=== PATIENT | female | born 1945 | race Caucasian/White ===

== ENCOUNTER 2017-07-07 18:08 | Inpatient (IN) | payer MEDICARE ==
[~2017-07-07] VITALS: Ht 157.5 cm; Wt 81.0 kg
--- NOTE | ~2017-07-07 | CR72 ---
[facility] A Service of [facility] RADIOLOGY TEXT RESULTS PATIENT: ABDON CAMACHO I LOCATION: [place] [address] : 43 UNIT #: [id number] AGE: [address]: Maryan Cuevas MD SEX: F ORDER DR: [id number] [facility] [address] [place], [place] [address] [id number] I MR#: [id number] Acc #: [id number] NAME: ABDON CAMACHO I. : 1945 SEX: F STUDY DATE/TIME: 07/07/2017 19:05 UNIT: CEDOF ROOM: 55788 STUDY DESCRIPTION: CR Chest Single View Portable Attending Physician: Perla Lin M.D. Ordering Physician: Cecilio Brasher D.O. Primary Care Physician: Alejandro Patten M.D. MEDICAL IMAGING REPORT This report is preliminary unless electronic signature is present EXAM Frontal chest, 07/07/2017. INDICATION 72-year-old female with altered mental status, short of air, weakness. Symptoms since a fall today. TECHNIQUE Frontal chest compared with 01/03/2017. FINDINGS Cardiac silhouette is within normal limits. Vascularity normal. Lungs clear. Mild prominence of the right hilum unchanged and probably relates to a prominent pulmonary artery. No pneumothorax. IMPRESSION No dense consolidation, effusion, or pneumothorax. Old healed granulomatous disease. Dictated by... Francisco Padilla M.D. THIS IS AN ELECTRONICALLY VERIFIED REPORT Francisco Padilla M.D. at 07/08/2017 8:30 AM DALILA/grisel TD: 07/08/2017 01:30 JOB #: [id number] MEDICAL IMAGING REPORT Page 1 of 1 COPY
--- NOTE | ~2017-07-07 | EKG ---
PATIENT: ABDON CAMACHO UNIT #: [id number] Ventricular Rate: 99 BPM Atrial Rate: 99 BPM P-R Interval: 164 ms QRS Duration: 68 ms Q-T Interval: 338 ms QTC Calculation(Bezet): 433 ms P [place]: 66 degrees Calculated R [place]: 47 degrees Calculated T [place]: 82 degrees Diagnosis Line: Normal sinus rhythm Diagnosis Line: Septal infarct (cited on or before 22-NOV-2014) Diagnosis Line: Abnormal ECG Diagnosis Line: When compared with ECG of 01-AUG-2015 02:11, Diagnosis Line: No significant change was found Diagnosis Line: Confirmed by BENITEZ FINE MD ([id number]) on Diagnosis Line: 07/11/2017 10:45:07 AM INTERPRETING MD: RODY ENCISO
--- NOTE | ~2017-07-07 | DS ---
Unit #: [id number] #: [id number] Patient: ABDON CAMACHO I [id number] [address] [address] [id number] I MR#: [id number] NAME: ABDON CAMACHO I. ROOM: 466 Age: 72 Sex: F Admission Date: 07/07/2017 : 1945 Discharge Date: 07/11/2017 Attending Physician: Maryan Cuevas M.D. Primary Care Physician: Alejandro Patten M.D. DISCHARGE SUMMARY DISCHARGE DIAGNOSES 1. E. Coli sepsis. 2. Pyelonephritis. 3. E. Coli urinary tract infection. 4. 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 5. Toxic metabolic encephalopathy. 6. Hypertension. 7. Possible right tonsillitis. 8. Chronic obstructive pulmonary disease. 9. Acute hypoxic respiratory failure. 10. Depression. 11. Chronic fatigue syndrome. 12. Chronic iron deficiency anemia. 13. Obesity. CONSULTATIONS None. PROCEDURES None. LAB DATA: Glucose 161, creatinine 1.1, WBC 5.1, hemoglobin 9.2, platelets 143. Urine cultures are growing E. Coli. Blood cultures are growing E. Coli with blood cultures negative. ALLERGIES Sulfa and metformin. DISCHARGE MEDICATIONS 1. Lyrica 25 p.o. b.i.d. 2. Zoloft 100 daily 3. Anoro Ellipta 62.5/25 mcg inhalation daily 4. Lisinopril 10 mg daily 5. Levemir 40 units subcu at 10:00 p.m. 6. Florastor 250 p.o. b.i.d. 7. Omeprazole 20 p.o. daily 8. Omnicef 300 p.o. b.i.d. for ten days HOSPITALIZATION COURSE [age] year old, admitted because of change in mental status: Sepsis Gram negative with E. Coli bacteremia, the patient was started on IV Rocephin. Cultures are growing E. Coli, both in blood and urine. The patient will be discharged on Omnicef for ten more days. Unit #: [id number] #: [id number] Patient: ABDON CAMACHO I Acute pyelonephritis with E. Coli urinary tract infection with change in mental status and sepsis. The patient will be discharged on Omnicef for ten more days. Toxic metabolic encephalopathy from sepsis, currently resolved. Hypertension, uncontrolled, continue with lisinopril. Right tonsillitis, not sure currently pain resolved, continue with Omnicef, less likely tonsillitis. Discharged home, follow with family physician in one weeks' time. Dictated by... Evelia Palumbo TD: 07/12/2017 08:31 JOB #: [id number] DISCHARGE SUMMARY Page 1 of 1 X Maryan Cuevas MD X DISCHARGE SUMMARY
--- NOTE | ~2017-07-07 | CT71 ---
[facility] A Service of [facility] RADIOLOGY TEXT RESULTS PATIENT: ABDON CAMACHO I LOCATION: [place] [address] : 43 UNIT #: [id number] AGE: [address]: Maryan Cuevas MD SEX: F ORDER DR: [id number] [facility] [address] [place], [place] [address] [id number] I MR#: [id number] Acc #: [id number] NAME: ABDON CAMACHO I. : 1945 SEX: F STUDY DATE/TIME: 07/07/2017 19:43 UNIT: CEDOF ROOM: 96365 STUDY DESCRIPTION: CT Head Wo Contrast Attending Physician: Perla Lin M.D. Ordering Physician: Cecilio Brasher D.O. Primary Care Physician: Alejandro Patten M.D. MEDICAL IMAGING REPORT This report is preliminary unless electronic signature is present EXAM CT head without IV contrast. COMPARISON February 04, 2017, August 03, 2016, and August 01, 2015. INDICATION 72-year-old female with confusion, weakness, and fever today. TECHNIQUE This CT exam was performed with one or more of the following radiation dose reduction techniques: automatic exposure control, adjustment of mA and/or kV according to patient size, and iterative reconstruction. FINDINGS Cerumen in both external ear canals. Calcifications of the cavernous and intracranial segments of the internal carotid arteries bilaterally. Visualized mastoid air cells, middle ears, and paranasal sinuses are well-aerated. No acute fracture or suspicious osseous lesion. Moderate cerebral and cerebellar volume loss. No abnormal extraaxial fluid collection or mass effect. No acute intracranial hemorrhage. Detailed evaluation of the brain is limited by motion. Stable chronic small vessel ischemic change of the left lentiform nucleus. No convincing evidence of acute ischemia. IMPRESSION Motion-limited exam. No convincing evidence of acute abnormality. There is definitely no acute intracranial hemorrhage or mass effect. There is grossly stable moderate cerebral and cerebellar volume loss. Arterial calcifications are again noted. Chronic small vessel ischemic change, mild. [facility] A Service of [facility] RADIOLOGY TEXT RESULTS PATIENT: ABDON CAMCAHO I LOCATION: [place] [address] : 43 UNIT #: [id number] AGE: [address]: Maryan Cuevas MD SEX: F ORDER DR: Dictated by... Jeremy Ruiz M.D. THIS IS AN ELECTRONICALLY VERIFIED REPORT Jeremy Ruiz M.D. at 07/13/2017 9:04 PM JOSE EDUARDO/grisel TD: 07/08/2017 01:35 JOB #: [id number] MEDICAL IMAGING REPORT Page 1 of 1 COPY
--- NOTE | ~2017-07-07 | HP ---
Unit #: [id number] #: [id number] Patient: ABDON CAMACHO I [id number] [address] [place], [place] [address] [id number] I MR#: [id number] NAME: ABDON CAMACHO I. ROOM: 18356 Age: 72 Sex: F Admission Date: 07/07/2017 : 1945 Attending Physician: Perla Lin M.D. Primary Care Physician: Alejandro Pattne M.D. HISTORY AND PHYSICAL CHIEF COMPLAINT Pyelonephritis with toxic metabolic encephalopathy. HISTORY This pleasant 72-year-old female with AODM, COPD, hypertension, is admitted for pyelonephritis and confusion. The patient was in her usual state of health until this morning. She appeared to be weaker, somewhat short of breath and used her inhaler. She also appeared to be chilled. Her family rechecked the patient after a couple of hours and she was confused and weak. She was brought to this emergency department with a temperature of 103.1. The patient was given Tylenol and bolused with IV fluids. She was then given Rocephin for significant pyuria. She does admit to some recent dysuria, urgency and frequency. Initial O2 saturation was only 90% on 2 L of oxygen but has improved. She also admits to a recent sore throat, and on examination she does have what appears to be right tonsillitis. PAST MEDICAL HISTORY 1. Admission two years ago for UTI and toxic metabolic encephalopathy. 2. AODM with peripheral neuropathy. 3. Admission for ischemic colitis and lower GI bleed 07/2016. Colonoscopy was performed showing ischemic colitis. Polyps were removed with diverticular disease. 4. COPD. 5. Essential hypertension. 6. GERD. 7. Chronic fatigue syndrome. 8. Depression. 9. B12 deficiency. 10. Hysterectomy. 11. Cholecystectomy. 12. Cataract extraction. ALLERGIES Sulfa, penicillin, metformin and codeine. HOME MEDICATIONS Levemir 45 units subcu q.h.s. for which the patient did received tonight; Stiolto Respimat two puffs daily; Ventolin inhaler as needed; omeprazole 20 mg daily as needed; lisinopril 10 mg daily; Lyrica 25 mg b.i.d. p.r.n. Ibuprofen; Zoloft 100 mg daily; FAMILY HISTORY Unit #: [id number] #: [id number] Patient: ABDON CAMACHO I Prostate cancer, dementia. SOCIAL HISTORY The patient lives with her daughter and grandson. She used to smoke a pack per day of tobacco but stopped smoking 16 years ago. Does not drink alcohol or use illicit drugs. REVIEW OF SYSTEMS Notable for confusion, urinary symptoms, diabetes, COPD, some throat pain, hypertension, GERD, and above mentioned surgeries. All other systems were reviewed and otherwise negative. PHYSICAL EXAMINATION GENERAL: Mildly ill appearing 72-year-old, moderately obese female. VITAL SIGNS: Temperature 103.1, pulse 97, respirations 20, blood pressure initially 183/57, which has improved. Initial O2 saturation was 90% on 2 L also improved. HEENT: Eyes - PERRLA. Extraocular muscles are intact. Pharynx has some whitish plaque by the right tonsil. NECK: Supple without adenopathy or thyromegaly. CHEST: Chest reveals some crackles at the bases bilaterally. CARDIAC: Normal S1 and S2 without murmur. ABDOMEN: Bowel sounds are present. Mild tenderness without rebound guarding. No hepatosplenomegaly or masses. EXTREMITIES: Without clubbing, cyanosis or edema. Pedal pulses are present but diminished. No ulcers on the feet. No splinter hemorrhages over the fingernail beds. NEUROLOGIC: Patient is awake, alert and is now oriented x3. Her cranial nerves are intact. She has equal strength throughout but generally weak on exam. DIAGNOSTIC STUDIES ADMISSION LABS: Hematocrit 31.7, down from 33.5 last year, MCV is 78.1, normal white count and platelet count. Left shift is noted. Coags normal. SMA 12 - glucose is 248, albumin 3.3, alk phos 100, lactic acid is normal. ABG - pH 7.42, pCO2 is 39, pO2 60.3, O2 saturation 89.8% on 2 L of oxygen. Cardiac markers are negative. Urinalysis - positive leukocyte esterase, protein, blood with 25-50 red cells, 50-100 white cells, 4+ bacteria noted. IMAGING STUDIES: Chest x-ray - old granulomatous disease. Head CT - no acute disease. Moderate volume loss, atherosclerotic changes, mild small vessel ischemic disease. CARDIOLOGY STUDIES: EKG - sinus rhythm, rate 99, Q noted in V1 and V2. The Q in V2 may be lead placement, I am unsure. ASSESSMENT 1. Pyelonephritis. 2. Toxic metabolic encephalopathy. 3. AODM with hyperglycemia, peripheral neuropathy, retinopathy. 4. Possible right tonsillitis. 5. COPD with mild acute hypoxic respiratory failure. 6. Depression, chronic fatigue syndrome. 7. Essential hypertension. PLANS Unit #: [id number] #: [id number] Patient: ABDON CAMACHO I 1. IV fluids. 2. Rocephin. 3. Adjust insulin while ill. 4. SCDs for DVT prophylaxis. 5. Obtain Strep swab. 6. Supplemental oxygen and albuterol mini-nebs. Dictated by Perla Lin M.D. AML/ts TD: 07/08/2017 05:12 JOB #: [id number] HISTORY AND PHYSICAL Page 1 of 1 X Perla Lin MD HISTORY AND PHYSICAL
[~2017-07-07 18:08] MED LIST: ADVAIR 100-501 EAC1 IH; B-COMPLEX-VITA1 EACH PO; DITROPAN5 MG PO; FLAGYL PO; GABAPENTIN300 MG PO; HEMOCYTE324 MG PO; LEVAQUIN PO; LEVEMIR FL100 UNIT/1; LEVEMIR INJ; LISINOPRIL10 MG PO; NEURONTIN600 MG; NEURONTIN600 MG PO; OMEPRAZOLE MAGN20 MG PO; PRILOSEC20 MG PO; PROVENTIL5 MG/ML IH; STIOLTO RESPIMAT4 GM INH; VENTOLIN HFA INH; VITAMIN B12-FO1 EACH PO; ZESTRIL10 M1 PO; ZOLOFT100 MG PO; ZYVOX600 MG PO
[2017-07-07 18:43] LABS: ARTERIAL BLD GAS O2 SATURATION 89.8 % (90.0-100.0); ARTERIAL BLOOD GAS CARBOXY HB 1.6 %sat (0.0-9.0); ARTERIAL BLOOD GAS HCO3 25.7 mmol/L; ARTERIAL BLOOD GAS MET HB 0.7 %sat (0.0-2.0); ARTERIAL BLOOD GAS PCO2 39.6 mmHg (35.0-45.0); ARTERIAL BLOOD GAS pH 7.421 (7.350-7.450)
[2017-07-07 18:44] LABS: ARTERIAL BLOOD GAS ART SITE LEFT BRACHIAL; ARTERIAL BLOOD GAS DELIVERY NASAL CANNULA; ARTERIAL BLOOD GAS PO2 60.3 mmHg (80.0-100); ARTERIAL DRAW? YES
[2017-07-07 19:02] LABS: BASOPHIL# 0.1 X10e3 (0-0.3); BASOPHIL% 0.6 % (0-2.5); EOSINOPHIL% 0.4 % (0.0-7.0); HEMATOCRIT 31.7 % (35.0-45.0); HEMOGLOBIN 10.6 gm/dL (12.0-16.0); LYMPHOCYTE# 0.3 X10e3 (1.0-3.5); MEAN CELL VOLUME 78.1 FL (83-96); MEAN CORPUSCULAR HEMOGLOBIN 26.2 PG (28-34); MEAN CORPUSCULAR HGB CONC 33.5 g/dL (30-36); MEAN PLATELET VOLUME 7.6 FL (6.5-11.5); MONOCYTE# 0.3 X10e3 (0-1.0); MONOCYTE% 2.7 % (3.0-12.0); NEUTROPHIL% 93.3 % (40-75); PLATELET COUNT 163 X10e3 (140-420); RED BLOOD COUNT 4.06 X10e (3.90-5.30); RED CELL DISTRIBUTION WIDTH 14.7 % (11.0-15.5); WHITE BLOOD COUNT 9.6 X10e3 (4.0-10.5)
[2017-07-07 19:06] LABS: DIFF IND NO
[2017-07-07 19:16] LABS: URINE SOURCE CLEAN CATCH
[2017-07-07 19:18] LABS: POC - CKMB 2.5 ng/mL (0.0-7.9); POC - TROPONIN <0.05 ng/mL (<=0.05)
[2017-07-07 19:18] LABS: ALBUMIN SERUM 3.3 g/dL (3.5-5.0); BILIRUBIN, DIRECT 0.4 mg/dL (0.0-0.2); BILIRUBIN,INDIRECT 1.5 mg/dL (0.0-0.9); BILIRUBIN,TOTAL 1.9 mg/dL (0.2-2.0); BUN/CREATININE RATIO 17.69; CALCIUM SERUM 8.6 mg/dL (8.4-10.2); CREATININE SERUM 1.3 mg/dL (0.6-1.4); GLOM FILT RATE Estimated 40.4 mL/min (>60); PARTIAL THROMBOPLASTIN TIME 26.1 SECONDS (23.5-31.3); POTASSIUM 4.3 mmol/L (3.5-5.1); PROTEIN TOTAL SERUM 6.7 g/dL (6.0-8.3); PROTHROMBIN TIME (PATIENT) 11.1 SECONDS (10.0-11.7)
[2017-07-07 19:23] LABS: URINE APPEARANCE CLOUDY; URINE BILIRUBIN NEG (NEG); URINE BLOOD 2+ (NEG); URINE COLOR YELLOW; URINE GLUCOSE NEG (NEG); URINE KETONE NEG (NEG); URINE LEUKOCYTE ESTERASE 2+ (NEG); URINE NITRATE NEG (NEG); URINE PROTEIN 3+ (NEG); URINE SPECIFIC GRAVITY 1.011 (1.003-1.035); URINE UROBILINOGEN 0.2 MG/DL (NEG)
[2017-07-07 19:26] LABS: CULTURE INDICATED? YES; URBCS1 AUWI 25-50 /[HPF] (0-2); URINE BACTERIA AUWI 4+ (NEGATIVE); URINE SQUAMOUS EPITHELIAL CELL NONE SEEN /[HPF]; UWBCS1 AUWI 50-100 (0-5)
[2017-07-07 20:54] LABS: POC - CKMB 2.5 ng/mL (0.0-7.9); POC - TROPONIN <0.05 ng/mL (<=0.05)
[2017-07-08 03:49] LABS: BASOPHIL# 0.1 X10e3 (0-0.3); BASOPHIL% 0.7 % (0-2.5); EOSINOPHIL# 0.1 X10e3 (0-0.7); EOSINOPHIL% 0.4 % (0.0-7.0); HEMATOCRIT 30.2 % (35.0-45.0); HEMOGLOBIN 9.9 gm/dL (12.0-16.0); LYMPHOCYTE# 0.9 X10e3 (1.0-3.5); LYMPHOCYTE% 7.8 % (17.0-45.0); MEAN CELL VOLUME 79.2 FL (83-96); MEAN CORPUSCULAR HEMOGLOBIN 26.1 PG (28-34); MEAN CORPUSCULAR HGB CONC 32.9 g/dL (30-36); MEAN PLATELET VOLUME 7.6 FL (6.5-11.5); MONOCYTE% 8.1 % (3.0-12.0); NEUTROPHIL# 9.8 X10e3 (1.5-7.1); PLATELET COUNT 148 X10e3 (140-420); RED BLOOD COUNT 3.82 X10e (3.90-5.30); RED CELL DISTRIBUTION WIDTH 14.8 % (11.0-15.5); WHITE BLOOD COUNT 11.8 X10e3 (4.0-10.5)
[2017-07-08 03:51] LABS: DIFF IND NO
[2017-07-08 04:15] LABS: BUN/CREATININE RATIO 22.72; CALCIUM SERUM 7.7 mg/dL (8.4-10.2); CREATININE SERUM 1.1 mg/dL (0.6-1.4); GLOM FILT RATE Estimated 49.4 mL/min (>60); POTASSIUM 3.8 mmol/L (3.5-5.1)
[2017-07-09 02:33] LABS: HEMATOCRIT 27.2 % (35.0-45.0); MEAN CELL VOLUME 79.2 FL (83-96); MEAN CORPUSCULAR HEMOGLOBIN 26.2 PG (28-34); MEAN CORPUSCULAR HGB CONC 33.1 g/dL (30-36); MEAN PLATELET VOLUME 7.3 FL (6.5-11.5); RED BLOOD COUNT 3.43 X10e (3.90-5.30); RED CELL DISTRIBUTION WIDTH 14.9 % (11.0-15.5); WHITE BLOOD COUNT 7.2 X10e3 (4.0-10.5)
[2017-07-09 02:57] LABS: BILIRUBIN,TOTAL 1.6 mg/dL (0.2-2.0); CALCIUM SERUM 8.2 mg/dL (8.4-10.2); CREATININE SERUM 1.2 mg/dL (0.6-1.4); GLOM FILT RATE Estimated 44.5 mL/min (>60); POTASSIUM 3.7 mmol/L (3.5-5.1); PROTEIN TOTAL SERUM 6.5 g/dL (6.0-8.3)
[2017-07-11 02:20] LABS: BASOPHIL% 0.7 % (0-2.5); DIFF IND NO; EOSINOPHIL# 0.2 X10e3 (0-0.7); EOSINOPHIL% 4.2 % (0.0-7.0); HEMOGLOBIN 9.2 gm/dL (12.0-16.0); LYMPHOCYTE# 0.8 X10e3 (1.0-3.5); MEAN CELL VOLUME 78.6 FL (83-96); MEAN CORPUSCULAR HEMOGLOBIN 25.9 PG (28-34); MEAN PLATELET VOLUME 7.8 FL (6.5-11.5); MONOCYTE# 0.7 X10e3 (0-1.0); MONOCYTE% 13.9 % (3.0-12.0); NEUTROPHIL# 3.3 X10e3 (1.5-7.1); NEUTROPHIL% 65.2 % (40-75); PLATELET COUNT 143 X10e3 (140-420); RED BLOOD COUNT 3.56 X10e (3.90-5.30); RED CELL DISTRIBUTION WIDTH 14.7 % (11.0-15.5); WHITE BLOOD COUNT 5.1 X10e3 (4.0-10.5)
[2017-07-11 02:38] LABS: BUN/CREATININE RATIO 20.9; CALCIUM SERUM 8.5 mg/dL (8.4-10.2); CREATININE SERUM 1.1 mg/dL (0.6-1.4); GLOM FILT RATE Estimated 49.4 mL/min (>60); POTASSIUM 3.5 mmol/L (3.5-5.1)
[2017-07-11] MEDS ORDERED: LYRICA25 MG PO (16:07)
[2017-07-11] MEDS ORDERED: LISINOPRIL10 MG PO (16:09)
[2017-07-11] MEDS ORDERED: ZOLOFT100 MG PO (16:09)
[2017-07-11] MEDS ORDERED: PROBIOTIC250 MG PO (16:12)
[2017-07-11] MEDS ORDERED: LEVEMIR100 UNITS/ SUBQ (16:20)
[2017-07-11] MEDS ORDERED: ANORO ELLIPTA1 EACH INH (16:24)
[2017-07-11] MEDS ORDERED: OMNICEF300 M1 PO (16:26)
== END 2017-07-11 18:00 | disposition home or self-care (01) | DRG 871 ==
LOC: CED 18:08 → CEDOF 20:58 → C4B 07-08 07:55 → CEDOF 07-08 07:55 → C4C 07-11 11:38
PROVIDERS: Emergency Medicine; Internal Medicine
DX: A41.51 Sepsis due to Escherichia coli [E. coli] (principal); G92 Toxic encephalopathy; J96.01 Acute respiratory failure with hypoxia; N10 Acute pyelonephritis; J44.9 Chronic obstructive pulmonary disease, unspecified; E11.42 Type 2 diabetes mellitus with diabetic polyneuropathy; I10 Essential (primary) hypertension; Z90.710 Acquired absence of both cervix and uterus; Z90.49 Acquired absence of other specified parts of digestive tract; Z98.49 Cataract extraction status, unspecified eye; E53.8 Deficiency of other specified B group vitamins; R53.82 Chronic fatigue, unspecified; B96.20 Unspecified Escherichia coli [E. coli] as the cause of diseases classified elsewhere; J03.90 Acute tonsillitis, unspecified; E11.319 Type 2 diabetes mellitus with unspecified diabetic retinopathy without macular edema; E11.65 Type 2 diabetes mellitus with hyperglycemia; D50.9 Iron deficiency anemia, unspecified; E66.9 Obesity, unspecified; Z79.84 Long term (current) use of oral hypoglycemic drugs
CPT/HCPCS: 36415; 36600; 70450; 71010; 80048; 80053; 80076; 81003; 82140; 82553; 82803; 82947; 83605; 84484; 85025; 85027; 85610; 85730; 87040; 87077; 87086; 87088; 87186; 87651; 93005; 94640; 94664; 94760; 96360; 96361; 97116; 97162; 99285; G8978-GP; G8979-GP; J0696; J1815

== ENCOUNTER 2017-07-15 20:12 | Inpatient (IN) | payer MEDICARE ==
[~2017-07-15] VITALS: Ht 152.4 cm; Wt 90.3 kg
--- NOTE | ~2017-07-15 | CR72 ---
[facility] A Service of [facility] RADIOLOGY TEXT RESULTS PATIENT: ABDON CAMACHO I LOCATION: A : 43 UNIT #: [id number] AGE: [address]: Steve Moreno MD SEX: F ORDER DR: [id number] [facility] [address] [place], [place] [address] [id number] I MR#: [id number] Acc #: [id number] NAME: ABDON CAMACHO I. : 1945 SEX: F STUDY DATE/TIME: 07/15/2017 20:42 UNIT: [facility] ROOM: [facility] STUDY DESCRIPTION: CR Chest Single View Portable Attending Physician: Steve Moreno M.D. Ordering Physician: Herbert Kiran M.D. Primary Care Physician: Alejandro Patten M.D. MEDICAL IMAGING REPORT This report is preliminary unless electronic signature is present EXAM Portable chest HISTORY Shortness of air and weakness for 2 days. FINDINGS Cardiac size and pulmonary vascularity are within normal limits. Mildly tortuous descending thoracic aorta. No airspace infiltrates or effusions. IMPRESSION No acute findings, Dictated by... Reid Golden M.D. THIS IS AN ELECTRONICALLY VERIFIED REPORT Reid Golden M.D. at 07/16/2017 11:48 PM DELFINO/he TD: 07/16/2017 10:41 JOB #: [id number] MEDICAL IMAGING REPORT Page 1 of 1 COPY
--- NOTE | ~2017-07-15 | EKG ---
PATIENT: ABDON CAMACHO UNIT #: [id number] Ventricular Rate: 79 BPM Atrial Rate: 79 BPM P-R Interval: 148 ms QRS Duration: 80 ms Q-T Interval: 394 ms QTC Calculation(Bezet): 451 ms P Reading: 21 degrees Calculated R Reading: 33 degrees Calculated T Reading: 54 degrees Diagnosis Line: Normal sinus rhythm Diagnosis Line: Normal ECG Diagnosis Line: When compared with ECG of 15-JUL-2017 20:45, Diagnosis Line: (unconfirmed) Diagnosis Line: Previous ECG has undetermined rhythm, needs review Diagnosis Line: Confirmed by MUSA PEMBERTON MD ([id number]) on 07/16/2017 Diagnosis Line: 7:37:21 PM INTERPRETING MD: NIECY ENCISO
--- NOTE | ~2017-07-15 | CR72 ---
[facility] A Service of [facility] RADIOLOGY TEXT RESULTS PATIENT: ABDON CAMACHO I LOCATION: [facility] : 43 UNIT #: [id number] AGE: [address]: Steve Moreno MD SEX: F ORDER DR: [id number] [facility] [address] [place], [place] [address] [id number] I MR#: [id number] Acc #: [id number] NAME: ABDON CAMACHO I. : 1945 SEX: F STUDY DATE/TIME: 07/18/2017 9:08 UNIT: [facility] ROOM: [facility] STUDY DESCRIPTION: CR Chest Single View Portable Attending Physician: Steve Moreno M.D. Ordering Physician: Steve Moreno M.D. Primary Care Physician: Alejandro Patten M.D. MEDICAL IMAGING REPORT This report is preliminary unless electronic signature is present EXAM Portable AP view of the chest COMPARISON July 15, 2017, July 07, 2017 and January 03, 2017. INDICATIONS 72-year-old female with dyspnea and weakness today. History of hypertension and COPD. FINDINGS The patient is rotated to the left shifting the tracheal gas column over the medial upper left chest. No evidence of pneumothorax. Heart size is within normal limits. There are slightly increased bibasilar opacities favoring bronchovascular crowding and atelectasis. No significant pleural effusion. Healed sixth left posterolateral rib fracture. IMPRESSION Slightly increased bibasilar opacities suggesting atelectasis. Correlation for signs of pneumonia recommended. No pleural effusion or evidence of pneumothorax. Dictated by... Jeremy Ruiz M.D. THIS IS AN ELECTRONICALLY VERIFIED REPORT Jeremy Ruiz M.D. at 07/23/2017 6:10 PM BLM/leonie TD: 07/18/2017 12:29 JOB #: [id number] [facility] A Service of [facility] RADIOLOGY TEXT RESULTS PATIENT: ABDON CAMACHO I [id number] 43 UNIT #: [id number] AGE: [address]: Steve Moreno MD SEX: F ORDER DR: MEDICAL IMAGING REPORT Page 1 of 1 COPY
--- NOTE | ~2017-07-15 | HP ---
Unit #: [id number] #: [id number] Patient: ABDON CAMACHO I [id number] [address] [place], [place] [address] [id number] I MR#: [id number] NAME: ABDON CAMACHO I. ROOM: 22208 Age: 72 Sex: F Admission Date: 07/16/2017 : 1945 Attending Physician: Perla Lin M.D. Primary Care Physician: Alejandro Patten M.D. HISTORY AND PHYSICAL CHIEF COMPLAINT Weakness. HISTORY This 72-year-old female with AODM, COPD, hypertension, recent admission for E. coli bacteremia/pyelonephritis is admitted for weakness. The patient was admitted to this facility on 07/07 through 07/11/2017 for E. coli bacteremia and pyelonephritis with toxic metabolic encephalopathy. She was prescribed Omnicef at the time of discharge but did not obtain antibiotics. Has been lying in her bed since her discharge, not getting up, with decreased p.o. intake, chills, malaise. She was brought to this emergency department late last evening with a blood pressure of 192/85, and hyperglycemic with a serum glucose of 300. She is not taking any of her medicines. In the ER, she was bolused with a liter of saline, given 1 g of Rocephin pending repeat blood cultures. PAST MEDICAL HISTORY 1. Recent admission 07/07 through 07/11/2017 for E. coli bacteremia and pyelonephritis. 2. Admission two years ago for UTI and toxic metabolic encephalopathy. 3. AODM with peripheral neuropathy. 4. Admission for ischemic colitis and lower GI bleed 07/2016. Colonoscopy revealed ischemic colitis. Polyps were removed, and diverticular disease noted. 5. COPD. 6. Essential hypertension. 7. GERD. 8. Chronic fatigue syndrome. 9. Depression. 10. B12 deficiency. 11. Hysterectomy. 12. Cholecystectomy. 13. Cataract extraction. ALLERGIES Sulfa, penicillin, metformin and codeine. HOME MEDICATIONS Patient is not taking any of her home medicines. She previously was takin. Zoloft 100 mg daily. 2. Omeprazole 20 mg daily. 3. Lisinopril 10 mg daily. Unit #: [id number] #: [id number] Patient: ABDON CAMACHO I 4. Ventolin inhaler as needed. 5. Stiolto Respimat, 2 puffs daily. 6. Lyrica b.i.d. FAMILY HISTORY Prostate cancer, dementia. SOCIAL HISTORY The patient lives with her daughter and granddaughter. She smoked a pack a day of tobacco but stopped smoking 16 years ago. Does not drink alcohol. REVIEW OF SYSTEMS Notable for weakness, malaise, chills, anorexia, UTI, diabetes, COPD, hypertension, GERD, above mentioned surgeries. All other systems were reviewed and otherwise negative. PHYSICAL EXAMINATION GENERAL: 72-year-old, weak appearing, obese female, currently in no acute distress. VITAL SIGNS: Temperature 97.9, pulse 84, respirations 12, blood pressure 192/85. O2 saturation is 94% on room air. HEENT EXAMINATION: Eyes PERRLA. Extraocular muscles are intact. Pharynx is benign. NECK: Supple without adenopathy or thyromegaly. CHEST: Clear. CARDIAC: Normal S1 and S2 without murmur. ABDOMEN: Bowel sounds are present. No hepatosplenomegaly, tenderness or masses. EXTREMITIES: Without C, C or E. Pedal pulses are present but diminished. No ulcers on the feet. NEUROLOGIC EXAM: The patient is awake, alert, oriented. Cranial nerves are intact. She is generally weak throughout but has equal strength. DIAGNOSTIC STUDIES LABORATORY: Admission labs - hematocrit is 29.4, up from 28. Low MCV of 78.1. Normal white count, platelet count. SMA-12 - glucose is 300, albumin is 3.3, alk. phos. 143, lactic acid is normal. Cardiac markers are negative. Urinalysis - trace leukocyte esterase, positive 2+ blood, 3+ protein, positive glucose with 5-10 white cells. No bacteria. IMAGING: Chest x-ray - no acute disease. CARDIOVASCULAR: EKG - sinus rhythm, rate 80, normal appearing. ASSESSMENT 1. Recent admission for E. coli bacteremia and pyelonephritis. Patient did not fill her antibiotic at the time of discharge. She presents with increasing chills, weakness and not taking any of her medicines. 2. AODM with hyperglycemia. 3. COPD. 4. Accelerated hypertension. 5. Depression. Unit #: [id number] #: [id number] Patient: ABDON CAMACHO I PLANS 1. Restart usual home medicines. 2. IV Rocephin pending repeat blood cultures. 3. IV fluids. 4. DVT prophylaxis. 5. Physical therapy and social work to see. Dictated by Perla Lin M.D. AML/df TD: 07/16/2017 06:10 JOB #: [id number] HISTORY AND PHYSICAL Page 1 of 1 X Perla Lin MD X HISTORY AND PHYSICAL
--- NOTE | ~2017-07-15 | DS ---
Unit #: [id number] #: [id number] Patient: ABDON CAMACHO I [id number] [address] [place], [place] [address] [id number] I MR#: [id number] NAME: ABDON CAMACHO ROOM: 232 Age: 72 Sex: F Admission Date: 07/16/2017 : 1945 Discharge Date: 07/20/2017 Attending Physician: Steve Moreno M.D. Primary Care Physician: Alejandro Patten M.D. DISCHARGE SUMMARY FINAL DIAGNOSES 1. Persistent weakness. 2. Chronic obstructive pulmonary disease exacerbation. 3. Depression. SECONDARY DIAGNOSES 1. Diabetes mellitus type 2. 2. Toxic metabolic encephalopathy. 3. Hypertension. 4. Chronic obstructive pulmonary disease. 5. Hypoxic respiratory failure. 6. Depression. 7. Chronic fatigue syndrome. 8. Recent Escherichia coli bacteremia/pyelonephritis. CONSULTS PulmonaryDr. (1) . HOSPITAL COURSE Patient is a pleasant 72-year-old female who was readmitted after recent discharge after being treated for E-coli sepsis with pyelonephritis. Patient did not seem to have filled antibiotics, was admitted and subsequently managed in the hospital, and she was seen in conjunction with pulmonary. It was felt that she would be a candidate for subacute rehab, and she was actually evaluated and accepted for [facility]. Her electrolytes were repleted. Did have some hypokalemia. However, they felt that patient probably had a possibility of CHF versus COPD. Blood sugars did trend downwards. Patient's weakness seemed to have improved, and she elected to be discharged home with home health instead of the SNU as previously planned. The plan will be to discharge her home with home health. Plans for her to schedule followup with her PCP in the next 3 to 5 days. MEDICATIONS Medications on discharge is: 1. Prednisone taper. 2. Anoro Ellipta 62.5/25 - 1 inhalational daily. 3. Zoloft 100 mg p.o. every morning. 4. Lyrica 25 mg p.o. b.i.d. per home dose. 5. Lisinopril 10 mg p.o. daily. 6. Levemir 20 units subcu b.i.d. 7. Florastor 250 mg p.o. b.i.d. 8. Doxycycline 100 mg p.o. twice daily for 5 more days. Unit #: [id number] #: [id number] Patient: ABDON CAMACHO I DISCHARGE PLAN She has scheduled followup with PCP in the next 3 to 5 days. She will be discharged in stable condition with home health. NOTE: Time spent coordinating discharge was about 28 minutes. Dictated by... Evelia Khanna TD: 07/20/2017 13:17 JOB #: [id number] DISCHARGE SUMMARY Page 1 of 1 X Anderson Kate MD X DISCHARGE SUMMARY
--- NOTE | ~2017-07-15 | CO ---
Unit #: [id number] #: [id number] Patient: ABDON CAMACHO I [id number] [address] [address] [id number] MR#: [id number] NAME: ABDON CAMACHO ROOM: 232 Age: 72 Sex: F Admission Date: 07/16/2017 : 1945 Attending Physician: Steve Moreno M.D. Primary Care Physician: Alejandro Patten M.D. Consultation Date: 07/18/2017 CONSULTATION REPORT REASON FOR CONSULTATION Shortness of breath. HISTORY OF PRESENT ILLNESS This is a very pleasant 72-year-old female with past medical history significant for diabetes, questionable COPD, hypertension, recent admission for E. coli bacteremia/pyelonephritis, who was admitted for profound fatigue and weakness. The patient apparently was discharged from the hospital on 07/11/2017 after an admission for E. coli bacteremia and pyelonephritis. The [facility] was [facility]. However, she was brought back with fatigue, shortness of breath, and systolic blood pressure in the 190s. The patient was hyperglycemic in the emergency room and per her report, she was not taking her medication. PAST MEDICAL HISTORY 1. Recurrent UTI. 2. Diabetes. 3. Neuropathy. 4. History of ischemic colitis. 5. COPD. 6. Hypertension. 7. Depression. 8. B12 deficiency. 9. GERD. PAST SURGICAL HISTORY 1. Cataract surgery. 2. Cholecystectomy. 3. Hysterectomy. ALLERGIES Sulfa, penicillin, metformin, codeine. HOME MEDICATIONS Zoloft, omeprazole, lisinopril, Ventolin, and Lyrica. FAMILY HISTORY 1. Prostate cancer. 2. Dementia. SOCIAL HISTORY Unit #: [id number] #: [id number] Patient: ABDON CAMACHO I The patient lives with daughter and granddaughter. She smoked one pack per day of tobacco, but she quit smoking 16 years ago. No history of alcohol or drug abuse. REVIEW OF SYSTEMS A 12-point review of systems was obtained and was negative except for what was mentioned above. PHYSICAL EXAMINATION GENERAL: The patient is in no acute distress, but she appears fatigued and worn out. VITAL SIGNS: Blood pressure is 165/85, respiratory rate 16, O2 saturation 98% on room air. HEENT: Atraumatic, normocephalic. PERRLA. EOMI. NECK: Supple. No JVD. No lymphadenopathy. CHEST: Decreased breath sounds bilaterally. HEART: S1 and S2 with systolic murmur. ABDOMEN: Soft, nontender. Bowel sounds positive. EXTREMITIES: +1 edema in the lower extremity. SKIN: No rashes. [employer]: Awake, alert, and oriented x3. No focal motor/sensory deficits. DIAGNOSTIC STUDIES LABORATORY RESULTS: Creatinine 1.1. Sodium 134. White blood count 8.2, hemoglobin 8.6. IMAGING STUDIES: Chest x-rays reviewed and noted by me. ASSESSMENT 1. Dyspnea, likely multifactorial. 2. Rule out acute on chronic diastolic congestive heart failure exacerbation. 3. Chronic anemia. 4. Fatigue. 5. Depression. 6. COPD. 7. Diabetes. 8. Neuropathy. PLAN 1. Shortness of breath is likely multifactorial secondary to severe deconditioning, morbid obesity, probably underlying obstructive sleep apnea, and given her increased lower extremity edema, she may have a component of diastolic congestive heart failure. That is exacerbated with hydration and other medication. 2. We will put the patient on IV Bumex and will obtain BMP and any report of echocardiogram that was done in this facility before. 3. We will obtain D-dimer even though pulmonary embolus seems less likely at this point. 4. Bronchodilator as needed. 5. Physical therapy and out of bed to chair. I would like to thank Dr. Moreno for allowing me to be part of this patient's care. Dictated by... Tess Thurman M.D. Unit #: [id number] #: [id number] Patient: ABDON CAMACHO I PERLITA/maday TD: 07/19/2017 02:21 JOB #: [id number] CONSULTATION REPORT Page 1 of 1 X TESS FONSECA MD CONSULTATION REPORT
[~2017-07-15 20:12] MED LIST changes: +ANORO ELLIPTA1 EACH INH; +LEVEMIR100 UNITS/ SUBQ; +LYRICA25 MG PO; +OMNICEF300 M1 PO; +PROBIOTIC250 MG PO
[2017-07-15 20:44] LABS: BASOPHIL# 0.3 X10e3 (0-0.3); BASOPHIL% 4.4 % (0-2.5); EOSINOPHIL# 0.2 X10e3 (0-0.7); EOSINOPHIL% 3.1 % (0.0-7.0); HEMATOCRIT 29.4 % (35.0-45.0); HEMOGLOBIN 9.6 gm/dL (12.0-16.0); LYMPHOCYTE# 0.8 X10e3 (1.0-3.5); LYMPHOCYTE% 10.2 % (17.0-45.0); MEAN CELL VOLUME 78.1 FL (83-96); MEAN CORPUSCULAR HEMOGLOBIN 25.5 PG (28-34); MEAN CORPUSCULAR HGB CONC 32.6 g/dL (30-36); MEAN PLATELET VOLUME 7.2 FL (6.5-11.5); MONOCYTE# 0.3 X10e3 (0-1.0); MONOCYTE% 4.5 % (3.0-12.0); NEUTROPHIL% 77.8 % (40-75); PLATELET COUNT 289 X10e3 (140-420); RED BLOOD COUNT 3.77 X10e (3.90-5.30); RED CELL DISTRIBUTION WIDTH 14.6 % (11.0-15.5); WHITE BLOOD COUNT 7.7 X10e3 (4.0-10.5)
[2017-07-15 20:45] LABS: DIFF IND NO
[2017-07-15 20:55] LABS: PARTIAL THROMBOPLASTIN TIME 24.1 SECONDS (23.5-31.3); PROTHROMBIN TIME (PATIENT) 10.8 SECONDS (10.0-11.7)
[2017-07-15 21:05] LABS: ALBUMIN SERUM 3.3 g/dL (3.5-5.0); BILIRUBIN, DIRECT 0.2 mg/dL (0.0-0.2); BILIRUBIN,INDIRECT 0.6 mg/dL (0.0-0.9); BILIRUBIN,TOTAL 0.8 mg/dL (0.2-2.0); CALCIUM SERUM 8.8 mg/dL (8.4-10.2); GLOM FILT RATE Estimated 55.5 mL/min (>60); POTASSIUM 4.3 mmol/L (3.5-5.1); PROTEIN TOTAL SERUM 7.2 g/dL (6.0-8.3)
[2017-07-15 21:36] LABS: URINE SOURCE CLEAN CATCH
[2017-07-15 21:56] LABS: URINE APPEARANCE CLEAR; URINE BILIRUBIN NEG (NEG); URINE BLOOD 2+ (NEG); URINE COLOR YELLOW; URINE GLUCOSE 100 MG/DL (NEG); URINE KETONE NEG (NEG); URINE LEUKOCYTE ESTERASE TRACE (NEG); URINE NITRATE NEG (NEG); URINE PROTEIN 3+ (NEG); URINE SPECIFIC GRAVITY 1.011 (1.003-1.035); URINE UROBILINOGEN 0.2 MG/DL (NEG)
[2017-07-15 21:58] LABS: CULTURE INDICATED? YES; URINE BACTERIA AUWI NEG (NEGATIVE); URINE SQUAMOUS EPITHELIAL CELL NONE SEEN /[HPF]
[2017-07-15 22:03] LABS: POC - CKMB 3.1 ng/mL (0.0-7.9); POC - TROPONIN <0.05 ng/mL (<=0.05)
[2017-07-16 08:30] LABS: CALCIUM SERUM 8.3 mg/dL (8.4-10.2); GLOM FILT RATE Estimated 55.5 mL/min (>60); POTASSIUM 4.1 mmol/L (3.5-5.1)
[2017-07-16 08:31] LABS: BASOPHIL# 0.1 X10e3 (0-0.3); BASOPHIL% 1.2 % (0-2.5); EOSINOPHIL# 0.1 X10e3 (0-0.7); EOSINOPHIL% 1.1 % (0.0-7.0); HEMATOCRIT 25.7 % (35.0-45.0); HEMOGLOBIN 8.5 gm/dL (12.0-16.0); LYMPHOCYTE# 0.9 X10e3 (1.0-3.5); LYMPHOCYTE% 14.3 % (17.0-45.0); MEAN CELL VOLUME 78.8 FL (83-96); MEAN PLATELET VOLUME 7.3 FL (6.5-11.5); MONOCYTE# 0.4 X10e3 (0-1.0); MONOCYTE% 6.9 % (3.0-12.0); NEUTROPHIL% 76.5 % (40-75); PLATELET COUNT 256 X10e3 (140-420); RED BLOOD COUNT 3.26 X10e (3.90-5.30); RED CELL DISTRIBUTION WIDTH 14.3 % (11.0-15.5); WHITE BLOOD COUNT 6.5 X10e3 (4.0-10.5)
[2017-07-16 08:32] LABS: DIFF IND NO
[2017-07-17 06:52] LABS: HEMATOCRIT 26.7 % (35.0-45.0); HEMOGLOBIN 8.8 gm/dL (12.0-16.0); MEAN CORPUSCULAR HEMOGLOBIN 25.8 PG (28-34); MEAN CORPUSCULAR HGB CONC 33.1 g/dL (30-36); MEAN PLATELET VOLUME 6.9 FL (6.5-11.5); RED BLOOD COUNT 3.42 X10e (3.90-5.30); RED CELL DISTRIBUTION WIDTH 14.4 % (11.0-15.5); WHITE BLOOD COUNT 8.2 X10e3 (4.0-10.5)
[2017-07-17 07:28] LABS: BUN/CREATININE RATIO 13.75; CALCIUM SERUM 8.6 mg/dL (8.4-10.2); CREATININE SERUM 0.8 mg/dL (0.6-1.4); GLOM FILT RATE Estimated 72.7 mL/min (>60); POTASSIUM 3.1 mmol/L (3.5-5.1)
[2017-07-18 05:38] LABS: HEMATOCRIT 25.9 % (35.0-45.0); HEMOGLOBIN 8.6 gm/dL (12.0-16.0); MEAN CORPUSCULAR HEMOGLOBIN 25.9 PG (28-34); MEAN CORPUSCULAR HGB CONC 33.2 g/dL (30-36); MEAN PLATELET VOLUME 7.1 FL (6.5-11.5); RED BLOOD COUNT 3.32 X10e (3.90-5.30); RED CELL DISTRIBUTION WIDTH 14.9 % (11.0-15.5); WHITE BLOOD COUNT 8.2 X10e3 (4.0-10.5)
[2017-07-18 06:15] LABS: BUN/CREATININE RATIO 11.81; CALCIUM SERUM 8.2 mg/dL (8.4-10.2); CREATININE SERUM 1.1 mg/dL (0.6-1.4); GLOM FILT RATE Estimated 49.4 mL/min (>60); MAGNESIUM 1.9 mg/dL (1.6-3.0)
[2017-07-19 05:11] LABS: HEMATOCRIT 26.9 % (35.0-45.0); HEMOGLOBIN 9.1 gm/dL (12.0-16.0); MEAN CELL VOLUME 77.4 FL (83-96); MEAN CORPUSCULAR HEMOGLOBIN 26.2 PG (28-34); MEAN CORPUSCULAR HGB CONC 33.8 g/dL (30-36); MEAN PLATELET VOLUME 6.9 FL (6.5-11.5); RED BLOOD COUNT 3.47 X10e (3.90-5.30); RED CELL DISTRIBUTION WIDTH 14.8 % (11.0-15.5); WHITE BLOOD COUNT 7.9 X10e3 (4.0-10.5)
[2017-07-19 06:10] LABS: CALCIUM SERUM 8.7 mg/dL (8.4-10.2); GLOM FILT RATE Estimated 55.5 mL/min (>60); POTASSIUM 3.9 mmol/L (3.5-5.1)
[2017-07-19 18:30] LABS: INFLUENZA A NEG (NEG); INFLUENZA B NEG (NEG)
[2017-07-20 06:43] LABS: HEMATOCRIT 28.4 % (35.0-45.0); HEMOGLOBIN 9.7 gm/dL (12.0-16.0); MEAN CELL VOLUME 77.2 FL (83-96); MEAN CORPUSCULAR HEMOGLOBIN 26.3 PG (28-34); MEAN CORPUSCULAR HGB CONC 34.1 g/dL (30-36); MEAN PLATELET VOLUME 7.1 FL (6.5-11.5); RED BLOOD COUNT 3.68 X10e (3.90-5.30); RED CELL DISTRIBUTION WIDTH 14.8 % (11.0-15.5); WHITE BLOOD COUNT 8.3 X10e3 (4.0-10.5)
[2017-07-20 07:24] LABS: BUN/CREATININE RATIO 15.83; CALCIUM SERUM 8.9 mg/dL (8.4-10.2); CREATININE SERUM 1.2 mg/dL (0.6-1.4); GLOM FILT RATE Estimated 44.5 mL/min (>60); POTASSIUM 4.7 mmol/L (3.5-5.1)
[2017-07-20] MEDS ORDERED: GUAIFENESIN-DM S5 ML PO (12:21)
[2017-07-20] MEDS ORDERED: LEVEMIR100 UNITS/ SUBQ (12:31)
[2017-07-20] MEDS ORDERED: ACETAMINOPHEN650 M1 PO (12:33)
[2017-07-20] MEDS ORDERED: VIBRAMYCIN100 M1 PO (12:35)
[2017-07-20] MEDS ORDERED: PREDNISONE10 MG PO (12:37)
== END 2017-07-20 14:49 | disposition home health service (06) | DRG 947 ==
LOC: CED 20:12 → CEDOF 07-16 00:25 → CED 07-16 00:31 → CEDOF 07-16 00:31 → C2A 07-16 08:24
PROVIDERS: Emergency Medicine; Internal Medicine; Internal Medicine Endocrinology, Diabetes & Metabolism; Internal Medicine Pulmonary Disease
DX: R53.1 Weakness (principal); J96.00 Acute respiratory failure, unspecified whether with hypoxia or hypercapnia; J96.01 Acute respiratory failure with hypoxia; G92 Toxic encephalopathy; J44.1 Chronic obstructive pulmonary disease with (acute) exacerbation; E11.42 Type 2 diabetes mellitus with diabetic polyneuropathy; E11.65 Type 2 diabetes mellitus with hyperglycemia; Z79.84 Long term (current) use of oral hypoglycemic drugs; I10 Essential (primary) hypertension; Z91.14 Patient's other noncompliance with medication regimen; K21.9 Gastro-esophageal reflux disease without esophagitis; R53.82 Chronic fatigue, unspecified; F32.9 Major depressive disorder, single episode, unspecified; E53.8 Deficiency of other specified B group vitamins; Z90.710 Acquired absence of both cervix and uterus; Z90.49 Acquired absence of other specified parts of digestive tract; Z98.49 Cataract extraction status, unspecified eye; Z88.0 Allergy status to penicillin; Z88.2 Allergy status to sulfonamides; D64.9 Anemia, unspecified; G47.33 Obstructive sleep apnea (adult) (pediatric); E66.01 Morbid (severe) obesity due to excess calories; Z87.440 Personal history of urinary (tract) infections; Z68.38 Body mass index [BMI] 38.0-38.9, adult
CPT/HCPCS: 36415; 71010; 80048; 80076; 81003; 82308; 82553; 82947; 83605; 83735; 83880; 84132; 84484; 85025; 85027; 85379; 85610; 85730; 87040; 87086; 87804; 92610; 93005; 94640; 94760; 97110; 97116; 97161; 97165; 97530; 99285; G8978-GP; G8979-GP; G8987-GO; G8988-GO; G8989-GO; G8996-GN; G8997-GN; G8998-GN; J0696; J1650; J1815; J2930; J3475